=== PATIENT | female | born 1995 | race Caucasian/White ===

== ENCOUNTER 2018-07-15 18:59 | Emergency (ER) | payer OTHER ==
[2018-07-15 19:26] VITALS: RESP 18
--- NOTE | 2018-07-15 20:23 | ED ---
Chest Pain HPI - General Chief Complaint: Chest Pain Stated Complaint: LEFT ARM PAIN Time Seen by Provider: 07/15/18 20:03 Source: patient, RN notes reviewed Mode of arrival: ambulatory Limitations: no limitations - History of Present Illness Initial Comments: This is a 23-year-old female who presents to the emergency department with chief complaint of chest pain. Patient reports intermittent left-sided chest pain for the past 2 months. She states that it feels like her heart is " falling down." She states that she was evaluated by [facility] one month ago and all testing was normal. She states that she has also followed up with her primary care provider who performed an EKG and was told that she has an arrhythmia.. Patient states that 3-4 days ago she developed left arm heaviness. Denies any shortness of breath, fevers or chills, nausea or vomiting. She denies any significant past medical history. Denies recent hospitalizations or surgeries, leg swelling, history of DVTs or PEs, coagulopathies, oral hormone replacement. Denies early onset of cardiac disease within her family. - Related Data Home Medications Medication Instructions Recorded Confirmed Eye Drop 1 drop BOTH EYES DAILY 07/15/18 07/15/18 Allergies Allergy/AdvReac Type Severity Reaction Status Date / Time latex Allergy Unknown Verified 07/15/18 19:27 Review of Systems ROS Statement: Those systems with pertinent positive or pertinent negative responses have been documented in the HPI. ROS Other: All systems not noted in ROS Statement are negative. EKG Findings - EKG Comments: EKG Findings:: 20:23:36. Sinus rhythm with marked sinus arrhythmia. Ventricular rate 65 bpm, DC interval 152, QRS duration 88, QT/QTc 410/426 Past Medical History Past Medical History: No Reported History History of Any Multi-Drug Resistant Organisms: None Reported Past Surgical History: Ear Surgery Past Psychological History: Anxiety, Depression Smoking Status: Current every day smoker Past Alcohol Use History: None Reported Past Drug Use History: None Reported General Exam - General Exam Comments Initial Comments: General: Awake and alert, well-developed; in no apparent distress. HEENT: Head atraumatic, normocephalic. Pupils are equal, round and reactive to light. Extraocular movements intact. Oropharynx moist without erythema or exudate. Neck: Supple. Normal ROM. Cardiovascular: Regular rate and rhythm. No murmurs, rubs or gallops. Chest symmetrical. Respiratory: Lungs clear to auscultation bilaterally. No wheezes, rales or rhonchi. Normal respiratory effort with no use of accessory muscles. Abdomen: Soft, non-tender, non-distended. No rigidity, rebound or guarding. Normal bowel sounds in all 4 quadrants. Musculoskeletal: Normal ROM, no tenderness bilateral upper and lower extremities. Ambulating normally. Skin: [place], warm and dry without rashes or lesions. Neurological: Alert and oriented x3. CN II-XII grossly intact. Speech is fluent and answers are appropriate. No focal neuro deficits. Psychiatric: Normal mood and affect. No overt signs of depression or anxiety noted. Limitations: no limitations Course Vital Signs 07/15/18 07/15/18 07/15/18 19:22 20:36 21:00 Temperature 98.6 F Pulse Rate 91 59 L Respiratory 18 18 18 Rate Blood Pressure 134/94 123/71 O2 Sat by Pulse 99 97 Oximetry Chest Pain [facility] This is a 23-year-old female who presents to the emergency department with chief complaint chest pain. Patient reports intermittent chest pain for the past 2 months. EKG reveals normal sinus rhythm with a sinus arrhythmia. Chest x-ray reveals no acute abnormalities. CBC and CMP are unremarkable. Troponin is negative. UA reveals moderate blood, however patient is currently on her period. Urine culture is ordered and is pending. Vital signs the been stable and patient is in no acute distress. Recommended following up with cardiology if symptoms persist. Patient is in agreement with plan and voices understanding. All questions were answered. She will be discharged home at this time. Did discuss with patient the fact that stress and anxiety can cause feelings of chest discomfort. Patient states that she has had a significant amount of stress and anxiety over the past one month. Chest x-ray impression: No acute cardiopulmonary process. Disposition Clinical Impression: Atypical chest pain Disposition: HOME SELF-CARE Condition: Good Instructions: Chest Pain (ED) Additional Instructions: Please follow up with cardiology for further evaluation. Please follow up with primary care provider within 1-2 days. Return to emergency department if symptoms should worsen or any concerns arise. Is patient prescribed a controlled substance at d/c from ED?: No Referrals: Iman Calvillo MD [Primary Care Provider] - 1-2 days [facility] [Provider Group] - 1-2 days Time of Disposition: 21:59
[2018-07-15 20:50] LABS: Basophils % (A) 0 %; Eosinophils # (A) 0.1 k/uL (0-0.7); Eosinophils % (A) 3 %; HCT 45.8 % (34.0-46.0); HGB 15.5 gm/dL (11.4-16.0); Lymphocytes # (A) 1.9 k/uL (1.0-4.8); Lymphocytes % (A) 38 %; MCH 31.4 pg (25.0-35.0); MCHC 33.8 g/dL (31.0-37.0); Mean Platelet Volume 6.9; Monocytes # (A) 0.2 k/uL (0-1.0); Monocytes % (A) 4 %; Neutrophils # (A) 2.7 k/uL (1.3-7.7); Neutrophils % (A) 54 %; Platelet Count 202 k/uL (150-450); RBC 4.92 m/uL (3.80-5.40); RDW 12.3 % (11.5-15.5); WBC 4.9 k/uL (3.8-10.6)
[2018-07-15 20:52] LABS: Amorphous Sediment,Urine Occasional /hpf; Appearance,Urine Cloudy (Clear); Bacteria,Urine Many /hpf; Bilirubin,Urine Negative (Negative); Blood,Urine Moderate (Negative); Color,Urine Colorless; Glucose,Urine (UA) Negative (Negative); Ketones,Urine Negative (Negative); Leukocyte Esterase,Urine Small (Negative); Nitrite,Urine Negative (Negative); PH, Urine 6.5 (5.0-8.0); Protein,Urine Negative (Negative); RBC,Urine 2 /hpf (0-5); Specific Gravity,Urine 1.004 (1.001-1.035); Squamous Epithelial Cell,Urine 10 /hpf (0-4); Urobilinogen,Urine <2.0 mg/dL (<2.0); WBC,Urine 7 /hpf (0-5)
[2018-07-15 21:02] LABS: ALT 21 U/L (9-52); AST 20 U/L (14-36); Albumin 4.7 g/dL (3.5-5.0); Alkaline Phosphatase 96 U/L (38-126); Anion Gap 7 mmol/L; Blood Urea Nitrogen 9 mg/dL (7-17); Calcium 9.6 mg/dL (8.4-10.2); Carbon Dioxide 28 mmol/L (22-30); Chloride 105 mmol/L (98-107); Glucose 84 mg/dL (74-99); Magnesium 2.1 mg/dL (1.6-2.3); Potassium 4.6 mmol/L (3.5-5.1); Sodium 140 mmol/L (137-145); Total Bilirubin 0.3 mg/dL (0.2-1.3); Total Protein 7.8 g/dL (6.3-8.2)
--- NOTE | 2018-07-15 21:25 | XR ---
EXAMINATION TYPE: XR chest 2V DATE OF EXAM: 07/15/2018 COMPARISON: NONE HISTORY: Chest pain down left arm. TECHNIQUE: Frontal and lateral views of the chest are obtained. FINDINGS: There is no focal air space opacity, pleural effusion, or pneumothorax seen. The cardiac silhouette size is within normal limits. The osseous structures are intact. IMPRESSION: No acute cardiopulmonary process.
[2018-07-15 22:18] VITALS: BP 117/83; PULSE 71; TEMP 98
== END 2018-07-15 22:17 | disposition home or self-care (01) ==
LOC: EC 18:59
DX: R07.89 Other chest pain (principal); F17.200 Nicotine dependence, unspecified, uncomplicated; Z79.899 Other long term (current) drug therapy; Z91.040 Latex allergy status
CPT/HCPCS: 36415; 71046; 80053; 81001; 81025; 83735; 84484; 85025; 87086; 93005; 99285

== ENCOUNTER → 2019-05-16 | Outpatient (CLI) | payer OTHER ==
--- NOTE | 2019-05-17 06:12 | US ---
EXAMINATION TYPE: US thyroid st tissue head/neck DATE OF EXAM: 05/16/2019 COMPARISON: NONE CLINICAL HISTORY: 23-year-old female R22.1 Fullness of neck. Patient states doctor felt thyroid appea red enlarged TECHNIQUE: Multiple sonographic images of the thyroid gland are obtained. FINDINGS: GLAND SIZE: Right Lobe: 4.5 x 1.7 x 1.5 cm Overall Parenchyma: homogenous Left Lobe: 4.1 x 1.4 x 1.2 cm Overall Parenchyma: homogeneous Isthmus Thickness: 0.2 cm NODULES RIGHT: # of nodules measured on right: 0 LEFT: # of nodules measured on left: 0 ISTHMUS: # of nodules measured in the isthmus: 0 Bilateral neck scanned, no evidence of lymphadenopathy. IMPRESSION: Thyroid gland measurements as above, within normal limits. No discrete nodules.
== END | disposition home or self-care (01) ==
LOC: RADUSWWP 16:31
PROVIDERS: ATTEND Family Medicine
DX: R22.1 Localized swelling, mass and lump, neck (principal)
CPT/HCPCS: 76536

== ENCOUNTER 2020-05-05 02:51 | Emergency (ER) | payer OTHER ==
[2020-05-05 02:57] VITALS: BP 158/100; PULSE 94; RESP 16; TEMP 98.4
--- NOTE | 2020-05-05 03:08 | ED ---
ENT HPI - General Chief complaint: ENT Stated complaint: Jaw/neck pain Time Seen by Provider: 05/05/20 03:06 Source: patient Mode of arrival: ambulatory Limitations: no limitations - History of Present Illness Initial comments: Mesha is a 4-year-old female presents to the ER today for evaluation of approximately 1 week of left-sided lower jaw pain. Patient reports she's been having pain or not which prompted her to come the ER for evaluation. Patient does have a history of caries doesn't currently follow with the dentist. Patient denies any associated fevers chills nausea vomiting. She has no difficulty opening her mouth or chewing. No difficulty speaking or swallowing. - Related Data Home Medications Medication Instructions Recorded Confirmed Eye Drop 1 drop BOTH EYES DAILY 07/15/18 07/15/18 Previous Rx's Medication Instructions Recorded Penicillin V Potassium [Pen Vee K] 500 mg PO Q6HR #28 tablet 05/05/20 Allergies Allergy/AdvReac Type Severity Reaction Status Date / Time latex Allergy Unknown Verified 05/05/20 02:57 Review of Systems ROS Statement: Those systems with pertinent positive or pertinent negative responses have been documented in the HPI. ROS Other: All systems not noted in ROS Statement are negative. Past Medical History Past Medical History: Eye Disorder History of Any Multi-Drug Resistant Organisms: None Reported Past Surgical History: Ear Surgery Past Psychological History: Anxiety, Depression Smoking Status: Current every day smoker Past Alcohol Use History: None Reported Past Drug Use History: None Reported General Exam - General Exam Comments Initial Comments: Physical Exam GENERAL: Patient is well-developed and well-nourished. Patient is nontoxic and well-hydrated and is in no distress. HENT: Normocephalic, Atraumatic. Poor dental hygiene Multiple dental caries Large dental caries in her left lower molars, some surrounding erythematous gums with no palpable abscess Cervical lymphadenopathy prominent on the left EYES: PERRL, EOMI PULMONARY: Unlabored respirations. CARDIOVASCULAR: RRR Warm and well perfused extremities ABDOMEN: Non-distended SKIN: No rashes or bruising : Deferred NEUROLOGIC: Alert and oriented Normal speech Normal gait MUSCULOSKELETAL: Moving all extremities with no apparent injury PSYCHIATRIC: No SI/HI Limitations: no limitations Course Vital Signs 05/05/20 02:52 Temperature 98.4 F Pulse Rate 94 Respiratory 16 Rate Blood Pressure 158/100 O2 Sat by Pulse 99 Oximetry Medical Decision Making - Medical Decision Making Patient seen and evaluated history was obtained from patient history and physical exam are consistent with early dental infection likely related the patient's poor dental hygiene and multiple dental caries Patient will be started on antibiotics given pain medications. Advised to contact the dental clinic this week for follow-up. Disposition Clinical Impression: Dental infection, Dental caries Disposition: HOME SELF-CARE Condition: Stable Instructions (If sedation given, give patient instructions): Toothache (ED) Additional Instructions: Please follow up with the [facility] dental clinic. [facility] [place] [address]. Phone number for new patients or [phone] for existing patients. [facility]. Must pay for x-rays then services are free. Call for an appoitnment. Prescriptions: Penicillin V Potassium [Pen Vee K] 500 mg PO Q6HR #28 tablet Is patient prescribed a controlled substance at d/c from ED?: No Referrals: Iman Calvillo MD [Primary Care Provider] - 1-2 days
[2020-05-05] MEDS ORDERED: PENICILLIN VK 500MG STARTER 4 TAB BTL PO STA (03:19)
[2020-05-05] MEDS ORDERED: ACET/COD 300 MG/30 MG STARTER PACK 6 TAB BTL PO STA (03:19)
== END 2020-05-05 03:35 | disposition home or self-care (01) ==
LOC: EC 02:51
DX: K02.9 Dental caries, unspecified (principal); K04.7 Periapical abscess without sinus; F17.200 Nicotine dependence, unspecified, uncomplicated; Z91.040 Latex allergy status
CPT/HCPCS: 99283

== ENCOUNTER 2021-05-31 11:03 | Emergency (ER) | payer OTHER ==
--- NOTE | 2021-05-31 12:02 | ED ---
ENT HPI - General Chief complaint: ENT Stated complaint: sorethroat Time Seen by Provider: 05/31/21 11:27 Source: patient, RN notes reviewed Mode of arrival: ambulatory Limitations: no limitations - History of Present Illness Initial comments: This a 25-year-old female presents emergency Department chief complaint of sore throat. Patient states pain started last for 4 hours. Patient states her swallow. No fevers or chills. Patient states that she has no cough, runny nose. She's had issues with recurrent strep, tonsillitis in which they have lydia ked about possible tonsillectomy. No history of mono no abdominal complaints of fatigue. - Related Data Home Medications Medication Instructions Recorded Confirmed Eye Drop 1 drop BOTH EYES DAILY 07/15/18 07/15/18 Previous Rx's Medication Instructions Recorded Penicillin V Potassium [Pen Vee K] 500 mg PO Q6HR #28 tablet 05/05/20 Amoxicillin/Potassium Clav 1 tab PO Q12HR #20 tab 05/31/21 [Augmentin 875-125 Tablet] Allergies Allergy/AdvReac Type Severity Reaction Status Date / Time latex Allergy Unknown Verified 05/05/20 02:57 Review of Systems ROS Statement: Those systems with pertinent positive or pertinent negative responses have been documented in the HPI. ROS Other: All systems not noted in ROS Statement are negative. Past Medical History Past Medical History: Eye Disorder History of Any Multi-Drug Resistant Organisms: None Reported Past Surgical History: Ear Surgery Past Psychological History: Anxiety, Depression Smoking Status: Never smoker Past Alcohol Use History: None Reported Past Drug Use History: None Reported General Exam Limitations: no limitations General appearance: alert, in no apparent distress Head exam: Present: atraumatic, normocephalic, normal inspection Eye exam: Present: normal appearance, PERRL, EOMI. Absent: scleral icterus, conjunctival injection, periorbital swelling ENT exam: Present: mucous membranes moist, TM's normal bilaterally. Absent: normal oropharynx (Erythematous posterior pharynx, moderate enlarged tonsils noted no exudates) Neck exam: Present: normal inspection, full ROM, lymphadenopathy. Absent: tenderness, meningismus Respiratory exam: Present: normal lung sounds bilaterally. Absent: respiratory distress, wheezes, rales, rhonchi, stridor Cardiovascular Exam: Present: regular rate, normal rhythm, normal heart sounds. Absent: systolic murmur, diastolic murmur, rubs, gallop, clicks GI/Abdominal exam: Present: soft, normal bowel sounds. Absent: distended, tenderness, guarding, rebound, rigid Neurological exam: Present: alert Skin exam: Present: warm, dry, intact, normal color. Absent: rash Course Vital Signs 05/31/21 11:26 Temperature 98.7 F Pulse Rate 103 H Respiratory 16 Rate Blood Pressure 147/90 O2 Sat by Pulse 99 Oximetry Medical Decision Making - Medical Decision Making Strep is negative though patient has evidence of tonsillitis. Patient will be given antibiotics. Return parameters discussed. - Lab Data Lab Results 05/31/21 Range/Units 11:31 Group A Strep Rapid Negative (Negative) Disposition Clinical Impression: Pharyngitis, Tonsillitis Disposition: HOME SELF-CARE Condition: Stable Instructions (If sedation given, give patient instructions): Tonsillitis (ED) Additional Instructions: Please return to the Emergency Department if symptoms worsen or any other concerns. Prescriptions: Amoxicillin/Potassium Clav [Augmentin 875-125 Tablet] 1 tab PO Q12HR #20 tab Is patient prescribed a controlled substance at d/c from ED?: No Referrals: Iman Calvillo MD [Primary Care Provider] - 1-2 days Time of Disposition: 13:11
[2021-05-31] MEDS ORDERED: dexAMETHasone 2 MG TAB PO STA (13:10)
[2021-05-31 13:29] VITALS: BP 136/82; PULSE 98; RESP 18; TEMP 98.6
== END 2021-05-31 13:29 | disposition home or self-care (01) ==
LOC: EC 11:03
DX: J03.90 Acute tonsillitis, unspecified (principal); F32.9 Major depressive disorder, single episode, unspecified
CPT/HCPCS: 87081; 87430; 99283; J8540

== ENCOUNTER 2021-08-15 19:51 | Emergency (ER) | payer OTHER ==
[2021-08-15] MEDS ORDERED: KETOROLAC 15 MG/ML 1 ML VIAL IM STA (20:22)
[2021-08-15] MEDS ORDERED: ACETAMINOPHEN TAB 500 MG TAB PO STA (20:47)
[2021-08-15 21:07] LABS: ALT 11 U/L (4-34); AST 20 U/L (14-36); African American GFR (CKD) >90 (>60 ml/min/1.73 sqM); Albumin 4.1 g/dL (3.5-5.0); Alkaline Phosphatase 73 U/L (38-126); Anion Gap 7 mmol/L; Blood Urea Nitrogen 10 mg/dL (7-17); Calcium 9.1 mg/dL (8.4-10.2); Carbon Dioxide 26 mmol/L (22-30); Chloride 105 mmol/L (98-107); Glucose 95 mg/dL (74-99); Non-African American GFR(CKD) >90 (>60 ml/min/1.73 sqM); Sodium 138 mmol/L (137-145); Total Bilirubin 0.3 mg/dL (0.2-1.3); Total Protein 7.1 g/dL (6.3-8.2)
[2021-08-15 21:13] LABS: Appearance,Urine Clear (Clear); Bacteria,Urine Occasional /hpf; Bilirubin,Urine Negative (Negative); Blood,Urine Large (Negative); Color,Urine Light Yellow; Glucose,Urine (UA) Negative (Negative); Ketones,Urine Negative (Negative); Leukocyte Esterase,Urine Large (Negative); Nitrite,Urine Negative (Negative); PH, Urine 6.5 (5.0-8.0); Protein,Urine Trace (Negative); RBC,Urine 1 /hpf (0-5); Specific Gravity,Urine 1.012 (1.001-1.035); Squamous Epithelial Cell,Urine 2 /hpf (0-4); Urobilinogen,Urine <2.0 mg/dL (<2.0); WBC,Urine 44 /hpf (0-5)
[2021-08-15 21:15] LABS: Basophils % (A) 1 %; Eosinophils # (A) 0.2 k/uL (0-0.7); Eosinophils % (A) 4 %; HCT 41.3 % (34.0-46.0); HGB 13.9 gm/dL (11.4-16.0); Lymphocytes # (A) 2.2 k/uL (1.0-4.8); Lymphocytes % (A) 33 %; MCH 32.8 pg (25.0-35.0); MCHC 33.7 g/dL (31.0-37.0); MCV 97.3 fL (80.0-100.0); Mean Platelet Volume 7.4; Monocytes # (A) 0.2 k/uL (0-1.0); Monocytes % (A) 3 %; Neutrophils # (A) 3.9 k/uL (1.3-7.7); Neutrophils % (A) 58 %; Platelet Count 266 k/uL (150-450); RBC 4.24 m/uL (3.80-5.40); RDW 12.7 % (11.5-15.5); WBC 6.7 k/uL (3.8-10.6)
--- NOTE | 2021-08-15 21:39 | ED ---
Female Urogenital HPI - General Chief complaint: Urogenital Stated complaint: UTI Time Seen by Provider: 08/15/21 20:18 Source: patient, RN notes reviewed Mode of arrival: ambulatory - History of Present Illness Initial comments: Patient is a 18-year-old female that presents to emergency department complaining of urinary tract symptoms. She notes she was seen at the urgent car e and given a few day supply of Bactrim for a UTI. She notes that she finished the Bactrim and still having dysuria and frequency. She denied any other issues or complaints at this time. She was otherwise a well-appearing 18-year-old female. She denied any chest pain shortness of breath headache nausea vomiting diarrhea constipation fever fatigue chills. - Related Data Home Medications Medication Instructions Recorded Confirmed Eye Drop 1 drop BOTH EYES DAILY 07/15/18 07/15/18 Previous Rx's Medication Instructions Recorded Penicillin V Potassium [Pen Vee K] 500 mg PO Q6HR #28 tablet 05/05/20 Amoxicillin/Potassium Clav 1 tab PO Q12HR #20 tab 05/31/21 [Augmentin 875-125 Tablet] Ciprofloxacin HCl [Cipro] 500 mg PO BID 5 Days #10 tab 08/15/21 Allergies Allergy/AdvReac Type Severity Reaction Status Date / Time latex Allergy Unknown Verified 08/15/21 20:17 Review of Systems ROS Statement: Those systems with pertinent positive or pertinent negative responses have been documented in the HPI. ROS Other: All systems not noted in ROS Statement are negative. Past Medical History Past Medical History: Eye Disorder History of Any Multi-Drug Resistant Organisms: None Reported Past Surgical History: Ear Surgery Past Psychological History: Anxiety, Depression Smoking Status: Never smoker Past Alcohol Use History: None Reported Past Drug Use History: None Reported General Exam General appearance: alert, in no apparent distress Head exam: Present: atraumatic, normocephalic, normal inspection Eye exam: Present: normal appearance, PERRL, EOMI. Absent: scleral icterus, conjunctival injection, periorbital swelling ENT exam: Present: normal exam, mucous membranes moist Neck exam: Present: normal inspection Respiratory exam: Present: normal lung sounds bilaterally. Absent: respiratory distress, wheezes, rales, rhonchi, stridor Cardiovascular Exam: Present: regular rate, normal rhythm, normal heart sounds. Absent: systolic murmur, diastolic murmur, rubs, gallop, clicks GI/Abdominal exam: Present: soft, tenderness (Minimal bilateral lower quadrant.), normal bowel sounds. Absent: distended, guarding, rebound, rigid Extremities exam: Present: normal inspection, full ROM, normal capillary refill. Absent: tenderness, pedal edema, joint swelling, calf tenderness Back exam: Present: normal inspection, full ROM. Absent: tenderness Neurological exam: Present: alert, oriented X3 Psychiatric exam: Present: normal affect, normal mood Skin exam: Present: warm, dry, intact, normal color. Absent: rash Course Vital Signs 08/15/21 20:14 Temperature 99.3 F Pulse Rate 86 Respiratory 18 Rate Blood Pressure 131/82 O2 Sat by Pulse 99 Oximetry Medical Decision Making - Medical Decision Making 26-year-old female complaining of urinary tract infection symptoms after completing a short course of Bactrim. Basic labs, urinalysis ordered. 650 mg Tylenol ordered for pain. Urinalysis shows 44 white blood cells, patient will be sent antibiotics to pharmacy. Rest of labs unremarkable. Case discussed with Dr. Boland, patient can discharge home. - Lab Data Result diagrams: 08/15/21 20:35 08/15/21 20:35 Lab Results 08/15/21 08/15/21 08/15/21 Range/Units 20:35 20:35 20:35 WBC 6.7 (3.8-10.6) k/uL RBC 4.24 (3.80-5.40) m/uL Hgb 13.9 (11.4-16.0) gm/dL Hct 41.3 (34.0-46.0) % MCV 97.3 (80.0-100.0) fL MCH 32.8 (25.0-35.0) pg MCHC 33.7 (31.0-37.0) g/dL RDW 12.7 (11.5-15.5) % Plt Count 266 (150-450) k/uL MPV 7.4 Neutrophils % 58 % Lymphocytes % 33 % Monocytes % 3 % Eosinophils % 4 % Basophils % 1 % Neutrophils # 3.9 (1.3-7.7) k/uL Lymphocytes # 2.2 (1.0-4.8) k/uL Monocytes # 0.2 (0-1.0) k/uL Eosinophils # 0.2 (0-0.7) k/uL Basophils # 0.0 (0-0.2) k/uL Sodium 138 (137-145) mmol/L Potassium 4.0 (3.5-5.1) mmol/L Chloride 105 (98-107) mmol/L Carbon Dioxide 26 (22-30) mmol/L Anion Gap 7 mmol/L BUN 10 (7-17) mg/dL Creatinine 0.82 (0.52-1.04) mg/dL Est GFR (CKD-EPI)AfAm >90 (>60 ml/min/1.73 sqM) Est GFR (CKD-EPI)NonAf >90 (>60 ml/min/1.73 sqM) Glucose 95 (74-99) mg/dL Calcium 9.1 (8.4-10.2) mg/dL Total Bilirubin 0.3 (0.2-1.3) mg/dL AST 20 (14-36) U/L ALT 11 (4-34) U/L Alkaline Phosphatase 73 (38-126) U/L Total Protein 7.1 (6.3-8.2) g/dL Albumin 4.1 (3.5-5.0) g/dL Urine Color Light Yellow Urine Appearance Clear (Clear) Urine pH 6.5 (5.0-8.0) Ur Specific [place] 1.012 (1.001-1.035) Urine Protein Trace H (Negative) Urine Glucose (UA) Negative (Negative) Urine Ketones Negative (Negative) Urine Blood Large H (Negative) Urine Nitrite Negative (Negative) Urine Bilirubin Negative (Negative) Urine Urobilinogen <2.0 (<2.0) mg/dL Ur Leukocyte Esterase Large H (Negative) Urine RBC 1 (0-5) /hpf Urine WBC 44 H (0-5) /hpf Ur Squamous Epith Cells 2 (0-4) /hpf Urine Bacteria Occasional H (None) /hpf Disposition Clinical Impression: Urinary tract infection Disposition: HOME SELF-CARE Condition: Stable Instructions (If sedation given, give patient instructions): Urinary Tract Infection in Women (ED) Additional Instructions: Please return to the Emergency Department if symptoms worsen or any other concerns. Take antibiotics as prescribed until complete. Prescriptions: Ciprofloxacin HCl [Cipro] 500 mg PO BID 5 Days #10 tab Is patient prescribed a controlled substance at d/c from ED?: No Referrals: Iman Calvillo MD [Primary Care Provider] - 1-2 days Time of Disposition: 21:39
[2021-08-15 21:51] VITALS: BP 128/78; PULSE 88; RESP 16; TEMP 97.8
== END 2021-08-15 21:48 | disposition home or self-care (01) ==
LOC: EC 19:51
DX: N39.0 Urinary tract infection, site not specified (principal); F41.9 Anxiety disorder, unspecified; F32.9 Major depressive disorder, single episode, unspecified; Z91.040 Latex allergy status
CPT/HCPCS: 36415; 80053; 81001; 85025; 87086; 99283

== ENCOUNTER 2022-02-04 06:14 | Emergency (ER) | payer OTHER ==
[2022-02-04 06:19] VITALS: BP 148/85; PULSE 97; RESP 18; TEMP 97.4
--- NOTE | 2022-02-04 06:48 | ED ---
General Adult HPI - General Chief complaint: Urogenital Stated complaint: Female Time Seen by Provider: 02/04/22 06:23 Source: patient, family, RN notes reviewed Mode of arrival: ambulatory Limitations: no limitations - History of Present Illness Initial comments: This a 26-year-old female presents emergency Department chief complaint of tampon stuck. Patient states that she felt that she had a tampon she placed a tampon approximately 30 minutes ago. Patient states she is unable to get it out. Patient states that she has no pain no significant bleeding no other complaints. - Related Data Home Medications Medication Instructions Recorded Confirmed Eye Drop 1 drop BOTH EYES DAILY 07/15/18 07/15/18 Previous Rx's Medication Instructions Recorded Penicillin V Potassium [Pen Vee K] 500 mg PO Q6HR #28 tablet 05/05/20 Amoxicillin/Potassium Clav 1 tab PO Q12HR #20 tab 05/31/21 [Augmentin 875-125 Tablet] Ciprofloxacin HCl [Cipro] 500 mg PO BID 5 Days #10 tab 08/15/21 Fluconazole [Diflucan] 150 mg PO DAILY 1 Days #1 tab 08/15/21 Allergies Allergy/AdvReac Type Severity Reaction Status Date / Time latex Allergy Unknown Verified 02/04/22 06:19 Review of Systems ROS Statement: Those systems with pertinent positive or pertinent negative responses have been documented in the HPI. ROS Other: All systems not noted in ROS Statement are negative. Past Medical History Past Medical History: Eye Disorder History of Any Multi-Drug Resistant Organisms: None Reported Past Surgical History: Ear Surgery Past Psychological History: Anxiety, Depression Smoking Status: Never smoker Past Alcohol Use History: None Reported Past Drug Use History: None Reported General Exam Limitations: no limitations General appearance: alert, in no apparent distress Respiratory exam: Present: normal lung sounds bilaterally. Absent: respiratory distress, wheezes, rales, rhonchi, stridor Cardiovascular Exam: Present: regular rate, normal rhythm, normal heart sounds. Absent: systolic murmur, diastolic murmur, rubs, gallop, clicks GI/Abdominal exam: Present: soft, normal bowel sounds. Absent: distended, tenderness, guarding, rebound, rigid External exam: Present: other (Exam performed with RN) Speculum exam: Present: other (There is a tampon noted in the posterior vaginal vault, minimal no active bleeding, no erythema no purulent drainage) Neurological exam: Present: alert Course Vital Signs 02/04/22 06:15 Temperature 97.4 F L Pulse Rate 97 Respiratory 18 Rate Blood Pressure 148/85 O2 Sat by Pulse 97 Oximetry Procedures - Procedures Initial comment: During speculum exam foreign body which was a tampon was removed using ring forceps with no complications RN was present. Medical Decision Making - Medical Decision Making Tampon was removed without complications patient and no erythema no purulent drainage no signs of infection patient's tampon was just placed patient will be discharged in stable condition. Disposition Clinical Impression: Retained tampon Disposition: HOME SELF-CARE Condition: Stable Additional Instructions: Please return to the Emergency Department if symptoms worsen or any other concerns. Is patient prescribed a controlled substance at d/c from ED?: No Referrals: Iman Calvillo MD [Primary Care Provider] - 1-2 days Time of Disposition: 06:47
== END 2022-02-04 06:50 | disposition home or self-care (01) ==
LOC: EC 06:14
DX: T19.2XXA Foreign body in vulva and vagina, initial encounter (principal); X58.XXXA Exposure to other specified factors, initial encounter
CPT/HCPCS: 99283

== ENCOUNTER 2024-01-04 17:18 | Emergency (ER) | payer OTHER ==
[2024-01-04 18:01] VITALS: TEMP 98.6
[2024-01-04 18:28] LABS: Basophils # (A) 0.1 k/uL (0-0.2); Basophils % (A) 1 %; Eosinophils # (A) 0.1 k/uL (0-0.7); Eosinophils % (A) 1 %; HCT 38.9 % (34.0-46.0); HGB 13.3 gm/dL (11.4-16.0); Lymphocytes # (A) 1.8 k/uL (1.0-4.8); Lymphocytes % (A) 26 %; MCH 31.8 pg (25.0-35.0); MCHC 34.3 g/dL (31.0-37.0); MCV 92.8 fL (80.0-100.0); Mean Platelet Volume 7.3; Monocytes # (A) 0.3 k/uL (0-1.0); Monocytes % (A) 4 %; Neutrophils # (A) 4.7 k/uL (1.3-7.7); Neutrophils % (A) 67 %; Platelet Count 238 k/uL (150-450); RBC 4.19 m/uL (3.80-5.40); RDW 11.8 % (11.5-15.5)
[2024-01-04 18:39] LABS: ALT 41 U/L (4-34); AST 25 U/L (14-36); African American GFR (CKD) >90 (>60 ml/min/1.73 sqM); Albumin 3.9 g/dL (3.5-5.0); Alkaline Phosphatase 71 U/L (38-126); Amylase 71 U/L (30-110); Anion Gap 6 mmol/L; Blood Urea Nitrogen 11 mg/dL (7-17); Calcium 9.2 mg/dL (8.4-10.2); Carbon Dioxide 25 mmol/L (22-30); Chloride 104 mmol/L (98-107); Glucose 94 mg/dL (74-99); Lipase 213 U/L (23-300); Non-African American GFR(CKD) >90 (>60 ml/min/1.73 sqM); Sodium 135 mmol/L (137-145); Total Bilirubin 0.3 mg/dL (0.2-1.3)
[2024-01-04 18:47] LABS: Appearance,Urine Cloudy (Clear); Bacteria,Urine Rare /hpf; Bilirubin,Urine Negative (Negative); Blood,Urine Moderate (Negative); Color,Urine Yellow; Glucose,Urine (UA) Negative (Negative); Hyaline Casts,Urine 1 /lpf (0-2); Ketones,Urine Negative (Negative); Leukocyte Esterase,Urine Negative (Negative); Mucus,Urine Few /hpf; Nitrite,Urine Negative (Negative); Protein,Urine Trace (Negative); RBC,Urine 1 /hpf (0-5); Specific Gravity,Urine 1.029 (1.001-1.035); Squamous Epithelial Cell,Urine 11 /hpf (0-4); Urobilinogen,Urine <2.0 mg/dL (<2.0); WBC,Urine 3 /hpf (0-5)
--- NOTE | 2024-01-04 20:04 | ED ---
Abdominal Pain HPI - General Chief Complaint: Abdominal Pain Stated Complaint: Post op lethargy, vomitting, pain Time Seen by Provider: 01/04/24 19:29 Source: patient Mode of arrival: ambulatory Limitations: no limitations - History of Present Illness Initial Comments: 28-year-old female with a past medical history significant for medication termination of IUP with mifepristone and misoprostol presenting to the ED with a chief complaint of abdominal pain. Patient states since receiving this medication has had generalized abdominal cramping which has been improving since onset, intermittent nausea vomiting, fatigue, and decreased appetite. Patient reports that she was told these were all side effects of medication induced however states that symptoms are going on longer than she initially expected which prompted presentation to the ED for further evaluation. At this time, denies any vaginal bleeding or discharge. No chest pain or shortness of breath. No other complaints at this time. - Related Data Home Medications Medication Instructions Recorded Confirmed Eye Drop 1 drop BOTH EYES DAILY 07/15/18 07/15/18 Previous Rx's Medication Instructions Recorded Penicillin V Potassium [Pen Vee K] 500 mg PO Q6HR #28 tablet 05/05/20 Amoxicillin/Potassium Clav 1 tab PO Q12HR #20 tab 05/31/21 [Augmentin 875-125 Tablet] Ciprofloxacin HCl [Cipro] 500 mg PO BID 5 Days #10 tab 08/15/21 Fluconazole [Diflucan] 150 mg PO DAILY 1 Days #1 tab 08/15/21 Ibuprofen [Motrin] 600 mg PO Q8HR PRN #20 tab 01/04/24 Ondansetron Odt [Zofran Odt] 4 mg PO Q8HR PRN #10 tab 01/04/24 Allergies Allergy/AdvReac Type Severity Reaction Status Date / Time latex Allergy Unknown Verified 02/04/22 06:19 Review of Systems ROS Statement: Those systems with pertinent positive or pertinent negative responses have been documented in the HPI. ROS Other: All systems not noted in ROS Statement are negative. Past Medical History Past Medical History: Eye Disorder History of Any Multi-Drug Resistant Organisms: None Reported Past Surgical History: Ear Surgery Additional Past Surgical History / Comment(s): d/c Past Psychological History: Anxiety, Depression Smoking Status: Never smoker Past Alcohol Use History: None Reported Past Drug Use History: None Reported General Exam Limitations: no limitations General appearance: alert, in no apparent distress Eye exam: Present: normal appearance Neck exam: Present: normal inspection Respiratory exam: Present: normal lung sounds bilaterally Cardiovascular Exam: Present: regular rate, normal rhythm GI/Abdominal exam: Present: soft (No significant tenderness to palpation. No rebound guarding or rigidity.) Neurological exam: Present: alert, oriented X3 Skin exam: Present: warm, dry Course Vital Signs 01/04/24 01/04/24 01/04/24 17:39 20:03 21:00 Temperature 98.6 F Pulse Rate 89 84 82 Respiratory 20 18 18 Rate Blood Pressure 120/78 122/70 103/54 O2 Sat by Pulse 99 99 100 Oximetry Medical Decision Making - Medical Decision Making Was pt. sent in by a medical professional or institution (, PA, TECHNICIAN'S HELPER, urgent care, hospital, or residential...) When possible be specific @ -No Did you speak to anyone other than the patient for history (EMS, parent, family, police, friend...)? What history was obtained from this source @ -No Did you review nursing and triage notes (agree or disagree)? Why? @ -I reviewed and agree with nursing and triage notes Were old charts reviewed (outside hosp., previous admission, EMS record, old EKG, old radiological studies, urgent care reports/EKG's, residential records)? Report findings @ -No old charts were reviewed Differential Diagnosis (chest pain, altered mental status, abdominal pain women, abdominal pain men, vaginal bleeding, weakness, fever, dyspnea, syncope, headache, dizziness, GI bleed, back pain, seizure, CVA, palpatations, mental health, musculoskeletal)? @ -Differential Abdominal Pain Women: Appendicitis, Cholecystitis, diverticulosis, ischemic bowel, pancreatitis, hepatitis, UTI, gastroenteritis, AAA, incarcerated hernia, bowel obstruction, constipation, inflammatory bowel, hepatitis, peptic ulcer disease, splenic infarction, perforated viscus, vulvitis, ovarian torsion, PID, kidney stone, placenta abruption, this is not meant to be an all-inclusive list EKG interpreted by me (3pts min.). @ -None X-rays interpreted by me (1pt min.). @ -None done CT interpreted by me (1pt min.). @ -None done U/S interpreted by me (1pt. min.). @ -None done What testing was considered but not performed or refused? (CT, X-rays, U/S, labs)? Why? @ -None What meds were considered but not given or refused? Why? @ -None Did you discuss the management of the patient with other professionals (professionals i.e. , PA, TECHNICIAN'S HELPER, lab, RT, psych nurse, social media intern, corporation lawyer, teacher, community development officer, case technician)? Give summary @ -No Was smoking cessation discussed for >3mins.? @ -No Was critical care preformed (if so, how long)? @ -No Were there social determinants of health that impacted care today? How? (Homelessness, low income, unemployed, alcoholism, drug addiction, transportation, low edu. Level, literacy, decrease access to med. care, long term, rehab)? @ -No Was there de-escalation of care discussed even if they declined (Discuss DNR or withdrawal of care, Hospice)? DNR status @ -No What co-morbidities impacted this encounter? (DM, HTN, Smoking, COPD, CAD, Cancer, CVA, ARF, Chemo, Hep., AIDS, mental health diagnosis, sleep apnea, morbid obesity)? @ -None Was patient admitted / discharged? Hospital course, mention meds given and route, prescriptions, significant lab abnormalities, going to OR and other pertinent info. @ -Discharge 28-year-old female presenting to the ED 6 days status post medication induced with mifepristone and misoprostol with continued symptoms of fatigue, decreased appetite, generalized abdominal pain, nausea/vomiting. At this time laboratory studies including CBC, CMP, UA unremarkable. At this time patient reassured that these are likely symptoms from recent medication induced abor tion. Patient reports no vaginal bleeding or fever. At this time vital signs stable and afebrile. Patient discharged home in stable condition with instructions to follow-up with her [employer]. After receiving IV fluids, Toradol, Zofran patient reports feeling significantly improved. Patient was offered transvaginal ultrasound however at this time declined. Discussed strict return precautions with patient and her mother who verbalized agreement. Undiagnosed new problem with uncertain prognosis? @ -No Drug Therapy requiring intensive monitoring for toxicity (Heparin, Nitro, Insuli n, Cardizem)? @ -No Were any procedures done? @ -No Diagnosis/symptom? @ -s/p Acute, or Chronic, or Acute on Chronic? @ -Acute Uncomplicated (without systemic symptoms) or Complicated (systemic symptoms)? @ -Uncomplicated Side effects of treatment? @ -No Exacerbation, Progression, or Severe Exacerbation? @ -No Poses a threat to life or bodily function? How? (Chest pain, USA, IA, pneumonia, PE, COPD, DKA, ARF, appy, cholecystitis, CVA, Diverticulitis, Homicidal, Suicidal, threat to staff... and all critical care pts) @ -No - Lab Data Result diagrams: 01/04/24 17:50 01/04/24 17:50 Lab Results 01/04/24 01/04/24 01/04/24 Range/Units 17:50 17:50 17:50 WBC 7.0 (3.8-10.6) k/uL RBC 4.19 (3.80-5.40) m/uL Hgb 13.3 (11.4-16.0) gm/dL Hct 38.9 (34.0-46.0) % MCV 92.8 (80.0-100.0) fL MCH 31.8 (25.0-35.0) pg MCHC 34.3 (31.0-37.0) g/dL RDW 11.8 (11.5-15.5) % Plt Count 238 (150-450) k/uL MPV 7.3 Neutrophils % 67 % Lymphocytes % 26 % Monocytes % 4 % Eosinophils % 1 % Basophils % 1 % Neutrophils # 4.7 (1.3-7.7) k/uL Lymphocytes # 1.8 (1.0-4.8) k/uL Monocytes # 0.3 (0-1.0) k/uL Eosinophils # 0.1 (0-0.7) k/uL Basophils # 0.1 (0-0.2) k/uL Sodium 135 L (137-145) mmol/L Potassium 4.0 (3.5-5.1) mmol/L Chloride 104 (98-107) mmol/L Carbon Dioxide 25 (22-30) mmol/L Anion Gap 6 mmol/L BUN 11 (7-17) mg/dL Creatinine 0.42 L (0.52-1.04) mg/dL Est GFR (CKD-EPI)AfAm >90 (>60 ml/min/1.73 sqM) Est GFR (CKD-EPI)NonAf >90 (>60 ml/min/1.73 sqM) Glucose 94 (74-99) mg/dL Plasma Lactic Acid Cristian 1.0 (0.7-2.0) mmol/L Calcium 9.2 (8.4-10.2) mg/dL Total Bilirubin 0.3 (0.2-1.3) mg/dL AST 25 (14-36) U/L ALT 41 H (4-34) U/L Alkaline Phosphatase 71 (38-126) U/L Total Protein 7.0 (6.3-8.2) g/dL Albumin 3.9 (3.5-5.0) g/dL Amylase 71 (30-110) U/L Lipase 213 (23-300) U/L HCG, Quant 84647.9 mIU/mL Urine Color Urine Appearance (Clear) Urine pH (5.0-8.0) Ur Specific [place] (1.001-1.035) Urine Protein (Negative) Urine Glucose (UA) (Negative) Urine Ketones (Negative) Urine Blood (Negative) Urine Nitrite (Negative) Urine Bilirubin (Negative) Urine Urobilinogen (<2.0) mg/dL Ur Leukocyte Esterase (Negative) Urine RBC (0-5) /hpf Urine WBC (0-5) /hpf Ur Squamous Epith Cells (0-4) /hpf Urine Bacteria (None) /hpf Hyaline Casts (0-2) /lpf Urine Mucus (None) /hpf Influenza Type A (PCR) (Not Detectd) Influenza Type B (PCR) (Not Detectd) RSV (PCR) (Not Detectd) SARS-CoV-2 (PCR) (Not Detectd) 01/04/24 01/04/24 Range/Units 18:05 19:54 WBC (3.8-10.6) k/uL RBC (3.80-5.40) m/uL Hgb (11.4-16.0) gm/dL Hct (34.0-46.0) % MCV (80.0-100.0) fL MCH (25.0-35.0) pg MCHC (31.0-37.0) g/dL RDW (11.5-15.5) % Plt Count (150-450) k/uL MPV Neutrophils % % Lymphocytes % % Monocytes % % Eosinophils % % Basophils % % Neutrophils # (1.3-7.7) k/uL Lymphocytes # (1.0-4.8) k/uL Monocytes # (0-1.0) k/uL Eosinophils # (0-0.7) k/uL Basophils # (0-0.2) k/uL Sodium (137-145) mmol/L Potassium (3.5-5.1) mmol/L Chloride (98-107) mmol/L Carbon Dioxide (22-30) mmol/L Anion Gap mmol/L BUN (7-17) mg/dL Creatinine (0.52-1.04) mg/dL Est GFR (CKD-EPI)AfAm (>60 ml/min/1.73 sqM) Est GFR (CKD-EPI)NonAf (>60 ml/min/1.73 sqM) Glucose (74-99) mg/dL Plasma Lactic Acid Cristian (0.7-2.0) mmol/L Calcium (8.4-10.2) mg/dL Total Bilirubin (0.2-1.3) mg/dL AST (14-36) U/L ALT (4-34) U/L Alkaline Phosphatase (38-126) U/L Total Protein (6.3-8.2) g/dL Albumin (3.5-5.0) g/dL Amylase (30-110) U/L Lipase (23-300) U/L HCG, Quant mIU/mL Urine Color Yellow Urine Appearance Cloudy H (Clear) Urine pH 6.0 (5.0-8.0) Ur Specific [place] 1.029 (1.001-1.035) Urine Protein Trace H (Negative) Urine Glucose (UA) Negative (Negative) Urine Ketones Negative (Negative) Urine Blood Moderate H (Negative) Urine Nitrite Negative (Negative) Urine Bilirubin Negative (Negative) Urine Urobilinogen <2.0 (<2.0) mg/dL Ur Leukocyte Esterase Negative (Negative) Urine RBC 1 (0-5) /hpf Urine WBC 3 (0-5) /hpf Ur Squamous Epith Cells 11 H (0-4) /hpf Urine Bacteria Rare H (None) /hpf Hyaline Casts 1 (0-2) /lpf Urine Mucus Few H (None) /hpf Influenza Type A (PCR) Not Detected (Not Detectd) Influenza Type B (PCR) Not Detected (Not Detectd) RSV (PCR) Not Detected (Not Detectd) SARS-CoV-2 (PCR) Not Detected (Not Detectd) Disposition Clinical Impression: Adverse effect of other drugs, medicaments and biological substances, initial encounter Disposition: HOME SELF-CARE Condition: Good Additional Instructions: Please return to the Emergency Department if symptoms worsen or any other concerns. Please follow-up with your [employer]. Please return promptly if you start to experience abnormal vaginal discharge and/or fever. Prescriptions: Ibuprofen [Motrin] 600 mg PO Q8HR PRN #20 tab PRN Reason: Pain Ondansetron Odt [Zofran Odt] 4 mg PO Q8HR PRN #10 tab PRN Reason: Nausea Is patient prescribed a controlled substance at d/c from ED?: No Referrals: Iman Calvillo MD [Primary Care Provider] - 1-2 days Time of Disposition: 21:25
[2024-01-04 20:11] VITALS: RESP 18
[2024-01-04] MEDS: KETOROLAC 15 MG/ML 1 ML VIAL IVP STA (20:15)
[2024-01-04 20:18] LABS: HCG,Quantitative Serum 98137.9 mIU/mL
[2024-01-04] MEDS: ONDANSETRON 4 MG/2 ML VIAL IVP STA (20:18)
[2024-01-04] MEDS: SODIUM CHLORIDE 0.9% 1,000 ML IV STA (20:20)
[2024-01-04] MEDS ORDERED: ONDANSETRON 4 MG ODT STARTER PACK 2 TAB BTL PO STA (21:26)
[2024-01-04 21:31] VITALS: BP 103/54; PULSE 82
== END 2024-01-04 21:48 | disposition home or self-care (01) ==
LOC: EC 17:18
DX: R10.84 Generalized abdominal pain (principal); T47.1X5A Adverse effect of other antacids and anti-gastric-secretion drugs, initial encounter; Z86.59 Personal history of other mental and behavioral disorders; Z20.822 Contact with and (suspected) exposure to COVID-19; Z91.040 Latex allergy status
CPT/HCPCS: 36415; 80053; 82150; 83605; 83690; 85025; 81001; 84702; 87636; 99284; 96374; 96375; 96361; J2405; J1885